=== PATIENT | female | born 1955 | race Caucasian/White ===

== ENCOUNTER 2017-12-08 14:18 | Emergency (ER) | payer MEDICAID ==
[~2017-12-08] VITALS: Ht 149.9 cm; Wt 73.5 kg
[2017-12-08 14:24] VITALS: BP 127/77
--- NOTE | 2017-12-08 14:30 | NUR ---
PATIENT PRESENTS TO ED WITH COMPLAINTS OF GENERALIZED BODY ACHES AND PAINS X 3 DAYS. PATIENT STATES SHE TAKES GABAPENTIN BUT IT IS NOT WORKING. DENIES N/V/D; SKIN IS PINK/WARM/DRY; AAOX4 WITH EVEN AND STEADY GAIT; LUNGS CLEAR BL; HR EVEN AND REGULAR; PT DENIES ANY FEVER, CP, SOB, OR COUGH AT THIS TIME; PATIENT STATES PAIN OF 9/10 AT THIS TIME; VSS; PATIENT POSITIONED FOR COMFORT; HOB ELEVATED; BEDRAILS UP X1; BED DOWN. ER MD MADE AWARE OF PT STATUS.
[2017-12-08] MEDS ORDERED: ONDANSETRON 4 MG/2 ML VIAL IVP ONE (14:40)
[2017-12-08] MEDS ORDERED: NACL 0.9% 1,000 ML IV ONE (14:40)
[2017-12-08] MEDS ORDERED: metroNIDAZOLE 500 MG/NS PREMIX 100 ML IV ONE (14:40)
[2017-12-08] MEDS ORDERED: KETOROLAC 30 MG/ML VIAL IVP ONE (14:40)
[2017-12-08] MEDS ORDERED: NACL 0.9% 1,000 ML IV SCH (14:40)
[2017-12-08 15:32] LABS: APPEARANCE,URINE CLEAR (CLEAR); BILIRUBIN,URINE NEGATIVE (NEGATIVE); BLOOD, URINE NEGATIVE (NEGATIVE); COLOR,URINE YELLOW (YELLOW); LEUKOCYTE ESTERASE ,URINE NEGATIVE (NEGATIVE); NITRITE, URINE NEGATIVE (NEGATIVE); PH,URINE 5.5 (5.0-9.0); UGLUCOSE NEGATIVE (NEGATIVE)
[2017-12-08] MEDS ORDERED: GABA300C PO (15:40)
[2017-12-08] MEDS ORDERED: SIMV20TA1 PO (15:40)
[2017-12-08] MEDS ORDERED: ASPI81CT89 PO (15:40)
[2017-12-08] MEDS ORDERED: SYN.05 PO (15:40)
[2017-12-08 15:45] LABS: BASOPHILS % (AUTO) 0.4 % (0.0-2.0); EOSINOPHILS # (AUTO) 0.3 K/uL (0-0.4); EOSINOPHILS % (AUTO) 4.9 % (0.0-4.0); HEMATOCRIT 37.7 % (36-48); HEMOGLOBIN 12.5 g/dL (12.0-16.0); LYMPHOCYTES # (AUTO) 1.6 K/uL (2.5-16.5); LYMPHOCYTES % (AUTO) 26.7 % (20.5-51.1); MEAN CORPUSCULAR HEMOGLOBIN 29 pg (27-31); MEAN CORPUSCULAR HGB CONC 33 g/dL (33-37); MEAN CORPUSCULAR VOLUME 86.3 fL (80-94); MONOCYTES # (AUTO) 0.4 K/uL (0.8-1.0); MONOCYTES % (AUTO) 6.6 % (1.7-9.3); NEUTROPHILS # (AUTO) 3.8 K/uL (1.8-7.7); NEUTROPHILS % (AUTO) 61.4 % (42.2-75.2); PLATELET COUNT (AUTO) 275 K/uL (140-450); RED BLOOD CELL COUNT(AUTO) 4.37 MIL/uL (4.20-5.40); RED CELL DISTRIBUTION WIDTH 13.8 % (11.6-13.7); WHITE BLOOD COUNT (AUTO) 6.1 K/uL (4.8-10.8)
[2017-12-08 16:00] LABS: ANION GAP 12.9 (8-16); CARBON DIOXIDE 26.6 mmol/L (21-32); CREATININE 0.7 mg/dL (0.6-1.3); POTASSIUM 3.5 mmol/L (3.5-5.1)
[2017-12-08 16:05] LABS: ALBUMIN 3.8 g/dL (3.4-5.0); TOTAL BILIRUBIN 0.3 mg/dL (0.0-1.0)
--- NOTE | 2017-12-08 16:30 | NUR ---
Patient appears to be resting comfortably in bed. Vital Signs within normal limits. Respirations even and unlabored.
[2017-12-08 16:54] VITALS: BP 127/77
--- NOTE | 2017-12-21 09:26 | NUR ---
AMMENDED NOTE: METRONIDAZOLE 100MLS/HR START TIME 1526 END TIME 1630
== END 2017-12-08 16:54 | disposition home or self-care (01) ==
LOC: MED 14:18
DX: M79.7 Fibromyalgia (principal); E11.9 Type 2 diabetes mellitus without complications; I10 Essential (primary) hypertension; E78.00 Pure hypercholesterolemia, unspecified; Z79.899 Other long term (current) drug therapy; Z88.0 Allergy status to penicillin; Z79.1 Long term (current) use of non-steroidal anti-inflammatories (NSAID)
CPT/HCPCS: 36415; 74176; 80053; 81003; 81025; 82150; 83690; 85025; 96365; 96375; 99285; J1885; J2405; J3490; J7030

== ENCOUNTER 2018-07-06 22:48 | Emergency (ER) | payer MEDICAID ==
[~2018-07-06] VITALS: Ht 152.4 cm; Wt 77.1 kg
[~2018-07-06 22:48] MED LIST: ASPI-1718 PO; GABA300C PO; SIMV20TA1 PO; SYN.05 PO
[2018-07-06 23:01] VITALS: BP 154/113
--- NOTE | 2018-07-06 23:15 | NUR ---
Pt taken to bed 2.
--- NOTE | 2018-07-06 23:15 | NUR ---
63/F presents to ED with complaints of headache x4 days. Pt denies N/V/D. Denies fever or chills. AOX4, with photophobia at this time. Lights dimmed in room. Eyes tearful. Patient ambulatory with steady gait. AOX4, clear speech. Denies syncope. NAD noted at this time.
[2018-07-06] MEDS ORDERED: KETOROLAC 30 MG/ML VIAL IM ONE (23:40)
--- NOTE | 2018-07-07 | NUR ---
Warm blankets provided, pt placed in position of comfort. Will continue to monitor.
[2018-07-07 00:39] VITALS: BP 111/66
--- NOTE | 2018-07-07 00:39 | NUR ---
Patient discharged with v/s stable. Written and verbal after care instructions given and explained. Patient alert, oriented and verbalized understanding of instructions. Ambulatory with steady gait. All questions addressed prior to discharge. ID band removed. Patient advised to follow up with PMD. Rx of Motrin 600mg and Promethazine with Codeine given. Patient educated on indication of medication including possible reaction and side effects. Opportunity to ask questions provided and answered.
== END 2018-07-07 00:39 | disposition home or self-care (01) ==
LOC: MED 22:48
DX: J06.9 Acute upper respiratory infection, unspecified (principal); R51 Headache; Z88.0 Allergy status to penicillin; Z79.1 Long term (current) use of non-steroidal anti-inflammatories (NSAID)
CPT/HCPCS: 96372; 99283; J1885

== ENCOUNTER 2019-12-05 16:03 | Emergency (ER) | payer MEDICAID ==
[~2019-12-05] VITALS: Ht 149.9 cm; Wt 72.8 kg
[~2019-12-05 16:03] MED LIST changes: -ASPI-1718 PO; +ASPI-1822 PO
[2019-12-05 16:14] VITALS: BP 150/81
[2019-12-05] MEDS ORDERED: KETOROLAC 60 MG/2 ML VIAL IM ONE (16:30)
[2019-12-05 17:32] VITALS: BP 142/78
== END 2019-12-05 17:32 | disposition home or self-care (01) ==
LOC: MED 16:03
DX: M54.31 Sciatica, right side (principal); M43.16 Spondylolisthesis, lumbar region; E11.9 Type 2 diabetes mellitus without complications; I10 Essential (primary) hypertension; E07.9 Disorder of thyroid, unspecified; Z79.899 Other long term (current) drug therapy; Z79.82 Long term (current) use of aspirin; Z88.0 Allergy status to penicillin
CPT/HCPCS: 72100; 81002; 96372; 99283; J1885